=== PATIENT | male | born 1990 | race Caucasian/White ===

== ENCOUNTER 2018-10-14 20:55 | Emergency (ER) | payer SELFPAY ==
[~2018-10-14] VITALS: Ht 180.3 cm; Wt 117.0 kg
--- NOTE | 2018-10-14 21:25 | NUR ---
BIBF. C/O "L KNEE/NOSE PAIN AFTER FALLING OFF A SCOOTER" -KO AOX4. AMBULATORY W.ASSISTANCE. -SOB NOTED.
[2018-10-14] MEDS ORDERED: HYDROCODONE/APAP 5/325MG 1 EACH TABLET PO ONE (22:30)
[2018-10-14] MEDS ORDERED: TDAP [DIPH/PERTUSSIS/TET] 0.5 ML VIAL IM ONE ×2 (22:30→23:17)
--- NOTE | 2018-10-14 22:57 | NUR ---
CALLED [facility] TO GET IMAGES READ.
[2018-10-14] MEDS ORDERED: AMOX/CLAVULANATE 875 MG TABLET ONE (23:16)
[2018-10-14] MEDS ORDERED: HYDROCODONE/APAP 5/325MG 1 EACH TABLET ONE (23:16)
[2018-10-14] MEDS ORDERED: AMOX/CLAVULANATE 875 MG TABLET PO ONE (23:30)
[2018-10-15 00:12] VITALS: BP 138/88
== END 2018-10-15 00:13 | disposition home or self-care (01) ==
LOC: ER 20:58
DX: S02.2XXA Fracture of nasal bones, initial encounter for closed fracture (principal); S83.8X2A Sprain of other specified parts of left knee, initial encounter; V00.148A Other scooter (nonmotorized) accident, initial encounter; Y93.89 Activity, other specified; Y92.410 Unspecified street and highway as the place of occurrence of the external cause; Y99.8 Other external cause status
CPT/HCPCS: 70486-TC; 73564-TC; 90715